=== PATIENT | male | born 1975 | race Two or more races ===

== ENCOUNTER 2018-05-13 08:13 | Day surgery (SDC) | payer MEDICAID ==
[~2018-05-13] VITALS: Ht 172.7 cm; Wt 67.1 kg
[2018-05-13] VITALS (10 sets, daily range): BP systolic 94–118; BP diastolic 64–74
[2018-05-13] MEDS ORDERED: NKM (08:38)
--- NOTE | 2018-05-13 09:16 | Pre-Procedure Note/Attestation ---
Pre-Procedure Note/Attestation Complete Prior to Procedure Planned Procedure: not applicable Procedure Narrative: esophagogastroduodenoscopy and colooscopy Indications for Procedure Pre-Operative Diagnosis: rectal mass GIB chronic GERD Attestation I attest that I discussed the nature of the procedure; its benefits; risks and complications; and alternatives (and the risks and benefits of such alternatives ), prior to the procedure, with the patient (or the patient's legal data entry representative). I attest that, if there was a reasonable possibility of needing a blood transfusion, the patient (or the patient's legal data entry representative) was given the [facility] standardized written summary, pursuant to the [place] Blood Safety Act ([place] Health and Safety Code # 1645, as amended). I attest that I re-evaluated the patient just prior to the surgery and that there has been no change in the patient's H&P, except as documented below: Errol Bettencourt MD May 13, 2018 09:16
--- NOTE | 2018-05-13 09:17 | Short Stay Surgery H&P ---
History of Present Illness History of Present Illness Chief Complaint rectal mass rectal bleed gerd HPI Amirhossein Nestor is a 42 year old male who was admitted on for Rectal Bleed, Abdominal Plain Medication History Scheduled No Known Medications* (NKM - No Known Medications*), 0 ., (Reported) Review of Systems Cardiovascular: Reports: no symptoms Respiratory: Reports: no symptoms Skeletal: Reports: no symptoms Gastrointestinal: Reports: gastro esophageal reflux disease Genitourinary: Reports: no symptoms Neurologic: Reports: no symptoms Endocrine: Reports: no symptoms Hematologic: Reports: no symptoms Physical Exam Vital Signs Last Vital Signs Date Time Temp Pulse Resp B/P (MAP) Pulse Ox O2 Delivery O2 Flow Rate FiO2 05/13/18 08:51 Room Air 05/13/18 08:49 98.6 85 18 118/68 98 Skin: normal HENT: normal Heart: normal Lungs: normal Abdomen: normal Extremities: normal Plan Plan of Care esophagogastroduodenoscopy and colonoscopy Attestation Are the patient's medical conditions optimized for surgery? Attestation Response: yes Errol Bettencourt MD May 13, 2018 09:17
[2018-05-13] MEDS ORDERED: Midazolam 2mg/2ml Inj ONE (10:04)
[2018-05-13] MEDS ORDERED: Lidocaine 1% MPF 10mg/ml 5ml ONE (10:04)
[2018-05-13] MEDS ORDERED: Propofol 200mg/20ml IV ONE (10:04)
--- NOTE | 2018-05-13 10:31 | Endoscopy Procedure Note ---
Endoscopy Procedure Note General Indication for Procedure: gib, rectal mass, GERD Procedures Performed: EGD, colonoscopy Operative Findings/Diagnosis: gastritis, hemorrhoids, rectal mass Specimen: yes Pt Tolerated Procedure Well: Yes Estimated Blood Loss: none Anesthesia Anesthesiologist: lilliana mckeon Anesthesia: MAC Inserted Devices Implant(s) used?: No Quality Quality of Bowel Preparation: Good Did scope reach the cecum?: No Why scope didn't reach cecum: Therapeutic intervn only Was there any complications?: No GI Core Measures 50 yrs or older w/o bx or poly: No 10yrs. F/U not recommended: Yes If not recommended, why?: Above average risk 10 yrs. F/U needed: Yes 18 years or older w/prev. colo: No Errol Bettencourt MD May 13, 2018 10:31
--- NOTE | 2018-05-13 13:10 | Anethesia Preoperative Eval ---
Anesthesia Pre-op PMH/ROS General Date of Evaluation: May 13, 2018 Time of Evaluation: 10:04 Anesthesiologist: ashley ASA Score: ASA 2 Mallampati Score Class I : Soft palate, uvula, fauces, pillars visible Class II: Soft palate, uvula, fauces visible Class III: Soft palate, base of uvula visible Class IV: Only hard plate visible Mallampati Classification: Class II Surgeon: castillo Diagnosis: rectal bleeding Surgical Procedure: egd/colonoscopy Anesthesia History: none Social History: smoking - former smoker Family History: no anesthesia problems Allergies: Coded Allergies: No Known Allergies (Unverified , 05/13/18) Medications: see eMAR Patient NPO?: Yes Past Medical History Gastrointestinal/Genitourinary: Reports: other - abdominal pain, rectal bleed PSxH Narrative: right knee surgery Anesthesia Pre-op Phys. Exam Physician Exam Last Vital Signs Date Time Temp Pulse Resp B/P (MAP) Pulse Ox O2 Delivery O2 Flow Rate FiO2 05/13/18 11:45 89 18 105/69 98 Room Air 05/13/18 11:30 98.4 05/13/18 11:00 3 Constitutional: NAD Neurologic: CN 2-12 intact Cardiovascular: RRR Respiratory: CTA Gastrointestinal: S/NT/ND Airway Exam Mallampati Score: Class II MO: full Neck: flexible TMD: 2fb ROM: full Anesthesia Pre-op A/P Risk Assessment & Plan Assessment: asa2 Plan: mac Status Change Before Surgery: No Pre-Antibiotics Drug: Flora Mccauley MD May 13, 2018 13:10
--- NOTE | 2018-05-13 13:13 | Immediate Post-Op Evaluation ---
Immediate Post-Op Evalulation Immediate Post-Op Evalulation Procedure: egd/colonoscopy/bx Date of Evaluation: May 13, 2018 Time of Evaluation: 10:52 IV Fluids: 400ml 0.9ns Blood Products: none Estimated Blood Loss: negligible Blood Pressure Systolic: 101 Blood Pressure Diastolic: 70 Pulse Rate: 85 Respiratory Rate: 18 O2 Sat by Pulse Oximetry: 99 Temperature (Fahrenheit): 98.6 Pain Score (1-10): 0 Nausea: No Vomiting: No Complications none Patient Status: awake, reacts, patent Hydration Status: adequate Drug: Flora Mccauley MD May 13, 2018 13:13
[2018-05-13] MEDS ORDERED: DiphenhydrAMINE 50mg/ml Inj IVP PRN (13:15)
[2018-05-13] MEDS ORDERED: Atropine Inj 1mg/10ml Syr IV PRN (13:15)
[2018-05-13] MEDS ORDERED: fentaNYL 100 mcg/2 mL IV PRN (13:15)
[2018-05-13] MEDS ORDERED: Midazolam 2mg/2ml Inj IVP PRN (13:15)
--- NOTE | 2018-05-13 13:16 | 48 Hour Post Anesthesia Eval ---
Post Anesthesia Evaluation Procedure: egd/colonoscopy/bx Date of Evaluation: May 13, 2018 Time of Evaluation: 10:54 Blood Pressure Systolic: 94 0: 69 Pulse Rate: 87 Respiratory Rate: 18 Temperature (Fahrenheit): 98.6 O2 Sat by Pulse Oximetry: 99 Airway: patent Nausea: No Vomiting: No Pain Intensity: 0 Hydration Status: adequate Cardiopulmonary Status: stable Mental Status/LOC: patient returned to baseline Post-Anesthesia Complications: none Follow-up care needed: N/A Flora Ryder MD May 13, 2018 13:16
--- NOTE | 2018-05-13 17:00 | Procedure Note ---
DATE OF PROCEDURE: 05/13/2018 SURGEON: Errol Bettencourt M.D. PROCEDURE: Upper endoscopy with biopsy and flexible endoscopy with biopsy. ANESTHESIOLOGIST: Flora Gill M.D. INSTRUMENT: Olympus adult flexible colonoscope and upper endoscope. INDICATION: 1. Rectal mass. 2. GI bleeding. 3. Anemia. 4. GERD. REASON FOR PROCEDURE: The procedure, risks, benefits, and possible consequences, including hemorrhage, aspiration, perforation and infection, and alternative treatments, were explained to the patient/legal guardian by Dr. Errol Bettencourt and the patient/legal guardian understood and accepted these risks. DESCRIPTION OF PROCEDURE: After informed consent was obtained and the patient was adequately sedated, Olympus upper endoscope was advanced from the stomach into the second portion of the duodenum and retroflexion was performed in the stomach. The patient has diffuse gastritis. Random biopsy from antrum was obtained for H. pylori infection. At this time, the upper endoscope was retrieved and the patient was turned over for colonoscopy. First, rectal exam was performed, which was positive for internal hemorrhoids. Then, the scope was advanced from the rectum into the 9 cm from anal verge where we encountered a large ulcerative mass, unable to pass the scope beyond this point. Multiple biopsies from this mass was obtained. Also, the most distal part of this mass was tattooed. The patient tolerated the procedure very well without any complication. SUMMARY OF FINDINGS: 1. Gastritis, status post biopsy. 2. Large rectal mass at about 9 cm from the anal verge. Unable to pass the scope beyond this point status post multiple biopsy and tattooing. RECOMMENDATIONS: 1. Follow up biopsy results. 2. The patient needs to get a dunlap CT to evaluate for staging and for metastasis. 3. The patient needs an Oncology consultation. We will refer back to Dr. Zhang for further patient management at this point. I want to thank Dr. Zhang for this kind referral. Errol Bettencourt M.D. DR: RAKESH JOB#: [id number] CC: Sean Zhang M.D.; Fax#: [phone]
== END 2018-05-13 12:00 | disposition home or self-care (01) ==
LOC: GAS 08:13
DX: C20 Malignant neoplasm of rectum (principal); K64.8 Other hemorrhoids; K21.9 Gastro-esophageal reflux disease without esophagitis; K29.70 Gastritis, unspecified, without bleeding; B96.81 Helicobacter pylori [H. pylori] as the cause of diseases classified elsewhere; D64.9 Anemia, unspecified; Z87.891 Personal history of nicotine dependence
CPT/HCPCS: 43239; 46606; J2250; J2704; Z7512; 94003; 94150

== ENCOUNTER 2019-12-29 09:14 | Day surgery (SDC) | payer MEDICAID ==
[~2019-12-29] VITALS: Ht 170.2 cm; Wt 79.8 kg
[2019-12-29] VITALS (9 sets, daily range): BP systolic 100–133; BP diastolic 58–88
[~2019-12-29 09:14] MED LIST: ALPHA LIPOIC A200 M1 PO; GABAPENTIN600 MG ORAL; LR 1000ml 1,000 ML IVLG SCH; NKM
[2019-12-29] MEDS ORDERED: Lidocaine 1% MPF 10mg/ml 5ml ONE (11:30)
[2019-12-29] MEDS ORDERED: LR 1000ml ONE (11:30)
--- NOTE | 2019-12-29 11:38 | Pre-Procedure Note/Attestation ---
Pre-Procedure Note/Attestation Complete Prior to Procedure Planned Procedure: not applicable Procedure Narrative: colonoscopy EGD Indications for Procedure Pre-Operative Diagnosis: rectal bleed Attestation I attest that I discussed the nature of the procedure; its benefits; risks and complications; and alternatives (and the risks and benefits of such alternatives ), prior to the procedure, with the patient (or the patient's legal herbicide service sales representative). I attest that, if there was a reasonable possibility of needing a blood transfusion, the patient (or the patient's legal herbicide service sales representative) was given the [facility] standardized written summary, pursuant to the [place] Blood Safety Act ([place] Health and Safety Code # 1645, as amended). I attest that I re-evaluated the patient just prior to the surgery and that there has been no change in the patient's H&P, except as documented below: Errol Bettencourt MD Dec 29, 2019 11:38
--- NOTE | 2019-12-29 11:40 | Short Stay Surgery H&P ---
History of Present Illness History of Present Illness Chief Complaint rectal bleed HPI Elva Baez is a 44 year old male who was admitted on for Rectal Bleed Patient History Allergies: Coded Allergies: No Known Allergies (Unverified , 12/29/19) PAST MEDICAL HISTORY: (1) Rectal cancer Medication History Scheduled Alpha Lipoic Acid (Alpha Lipoic Acid), 200 MG PO BID, (Reported) Gabapentin* (Gabapentin*), 600 MG ORAL THREE TIMES A DAY, (Reported) Review of Systems Cardiovascular: Reports: no symptoms Respiratory: Reports: no symptoms Skeletal: Reports: no symptoms Gastrointestinal: Reports: no symptoms Genitourinary: Reports: no symptoms Neurologic: Reports: no symptoms Endocrine: Reports: no symptoms Physical Exam Vital Signs Last Vital Signs Date Time Temp Pulse Resp B/P (MAP) Pulse Ox O2 Delivery O2 Flow Rate FiO2 12/29/19 09:47 97.2 65 18 100/58 98 Room Air Plan Plan of Care EGD/colonoscopy Attestation Are the patient's medical conditions optimized for surgery? Attestation Response: yes Errol Bettencourt MD Dec 29, 2019 11:40
--- NOTE | 2019-12-29 12:07 | Endoscopy Procedure Note ---
Endoscopy Procedure Note General Indication for Procedure: rectal bleed Procedures Performed: EGD, colonoscopy Operative Findings/Diagnosis: hemorrhoids, gastritis Specimen: yes Pt Tolerated Procedure Well: Yes Estimated Blood Loss: none Anesthesia Anesthesiologist: luis e Anesthesia: MAC Inserted Devices Implant(s) used?: No Quality Quality of Bowel Preparation: Fair Did scope reach the cecum?: Yes Was there any complications?: No GI Core Measures 50 yrs or older w/o bx or poly: No 10yrs. F/U recommended: Yes If not recommended, why?: Above average risk 18 years or older w/prev. colo: Yes <3yrs. since last colonoscopy: Yes Med reason:<3 yrs.: cancer Errol Bettencourt MD Dec 29, 2019 12:07
--- NOTE | 2019-12-29 12:15 | Immediate Post-Op Evaluation ---
Immediate Post-Op Evalulation Immediate Post-Op Evalulation Procedure: EGD/Colonoscopy Date of Evaluation: Dec 29, 2019 Time of Evaluation: 12:15 IV Fluids: 500 Blood Pressure Systolic: 119 Blood Pressure Diastolic: 78 Pulse Rate: 63 Respiratory Rate: 14 O2 Sat by Pulse Oximetry: 100 Temperature (Fahrenheit): 97.3 Nausea: No Vomiting: No Complications none Patient Status: awake, reacts, patent Hydration Status: adequate Drug: none Kia Kimball CRNA Dec 29, 2019 12:15
--- NOTE | 2019-12-29 12:16 | Anethesia Preoperative Eval ---
Anesthesia Pre-op PMH/ROS General Date of Evaluation: Dec 29, 2019 Time of Evaluation: 11:30 Anesthesiologist: kirstin ASA Score: ASA 2 Mallampati Score Class I : Soft palate, uvula, fauces, pillars visible Class II: Soft palate, uvula, fauces visible Class III: Soft palate, base of uvula visible Class IV: Only hard plate visible Mallampati Classification: Class II Surgeon: castillo Diagnosis: rectal bleeding Surgical Procedure: EGD/Colonoscopy Anesthesia History: none Family History: no anesthesia problems Allergies: Coded Allergies: No Known Allergies (Unverified , 12/29/19) Medications: see eMAR Patient NPO?: Yes NPO Date: Dec 29, 2019 NPO Time: 00:01 Past Medical History Cardiovascular: Denies: HTN, CAD, VA, valve dz, arrhythmia, other Pulmonary: Denies: asthma, COPD, FRANCY, other Gastrointestinal/Genitourinary: Reports: GERD Neurologic/Psychiatric: Denies: dementia, CVA, depression/anxiety, TIA, other Endocrine: Denies: DM, hypothyroidism, steroids, other HEENT: Denies: cataract (L), cataract (R), glaucoma, [place] (L), [place] (R), other Hematology/Immune: Reports: other - rectal ca; Denies: anemia, DVT, bleeding disorder Musculoskeletal/Integumentary: Denies: OA, RA, DJD, DDD, edema, other PSxH Narrative: colonoscopy/ knee surgery Anesthesia Pre-op Phys. Exam Physician Exam Last Vital Signs Date Time Temp Pulse Resp B/P (MAP) Pulse Ox O2 Delivery O2 Flow Rate FiO2 12/29/19 09:47 97.2 65 18 100/58 98 Room Air Constitutional: NAD Neurologic: CN 2-12 intact Cardiovascular: RRR Respiratory: CTA Gastrointestinal: S/NT/ND Airway Exam Mallampati Classification 2 Mallampati Score: Class II MO: full ROM: full Dentures: no upper, no lower Anesthesia Pre-op A/P Studies Pre-op Studies: EKG - SR Risk Assessment & Plan Plan: mac Status Change Before Surgery: No Pre-Antibiotics Drug: denied Kia Kimball CRNA Dec 29, 2019 12:16
--- NOTE | 2019-12-29 12:58 | 48 Hour Post Anesthesia Eval ---
Post Anesthesia Evaluation Procedure: EGD/Colonoscopy Date of Evaluation: Dec 29, 2019 Time of Evaluation: 12:58 Blood Pressure Systolic: 133 0: 88 Pulse Rate: 54 Respiratory Rate: 14 O2 Sat by Pulse Oximetry: 98 Airway: patent Nausea: No Vomiting: No Hydration Status: adequate Cardiopulmonary Status: stable Mental Status/LOC: patient returned to baseline Post-Anesthesia Complications: none Follow-up care needed: N/A Kia Kimball CRNA Dec 29, 2019 12:58
--- NOTE | 2019-12-29 16:00 | Procedure Note ---
DATE OF PROCEDURE: 12/29/2019 SURGEON: Errol Bettencourt MD REFERRING PHYSICIAN: Amparo Bowers MD PROCEDURE: Upper endoscopy with biopsy and colonoscopy with biopsy. ANESTHESIA: Per FLAME CUTTING MACHINE OPERATOR HELPER, Kia Tarrillion. INSTRUMENT: Olympus adult flexible upper endoscope and colonoscope. INDICATION: History of colorectal cancer now with rectal bleeding, chronic GERD. REASON FOR PROCEDURE: The procedure, risks, benefits, and possible consequences, including hemorrhage, aspiration, perforation and infection, and alternative treatments, were explained to the patient/legal guardian by Dr. Errol Bettencourt and the patient/legal guardian understood and accepted these risks. PROCEDURE IN DETAIL: After informed consent was obtained and the patient was adequately sedated, Olympus upper endoscope was advanced from mouth into the second portion of the duodenum and retroflexion was performed in the stomach. The patient has diffuse gastritis, atrophic looking. Biopsy from antrum was obtained to rule out H. pylori infection. At this time, the upper endoscope was retrieved and the patient was turned over for colonoscopy. First, rectal exam was performed, which was positive for internal hemorrhoids. Then, the scope was advanced from the rectum into the cecum documented by appendix orifice, ileocecal valve, and right upper quadrant palpation. Quality of the prep unfortunately was poor, the examination was somewhat limited. There was one diminutive polyp in the rectum, removed with cold biopsy forceps technique. Anastomosis seems to be in the rectum about 10 centimeter from the anal verge. Retroflexion of rectum showed evidence of medium-sized internal hemorrhoids. SUMMARY OF FINDINGS: 1. Gastritis, status post biopsy. 2. Poor colonic prep. 3. Internal hemorrhoids. 4. One rectal polyp removed. See above for details. RECOMMENDATIONS: Follow biopsy results and treat accordingly. I want to thank Dr. Amparo Bowers for this kind referral. Errol Bettencourt M.D. DR: BEE JOB#: [id number] CC: Amparo Bowers M.D.; Fax#: [phone]
== END 2019-12-29 23:40 | disposition home or self-care (01) ==
LOC: GAS 09:14
DX: K21.9 Gastro-esophageal reflux disease without esophagitis (principal); Z85.048 Personal history of other malignant neoplasm of rectum, rectosigmoid junction, and anus; K29.70 Gastritis, unspecified, without bleeding; K64.8 Other hemorrhoids; K62.1 Rectal polyp; K63.89 Other specified diseases of intestine
CPT/HCPCS: 43239; 45380; 94003; J2704; J7120; Z7512; 94150